=== PATIENT | male | born 1960 | race African-American/Black ===

== ENCOUNTER 2018-09-23 16:44 | Inpatient (IN) | payer MEDICAID ==
[~2018-09-23] VITALS: Ht 182.9 cm; Wt 67.6 kg
[~2018-09-23 16:44] MED LIST: ASPI-1159 PO; COR3 PO; FURO-151 PO; LOSA25TA12 PO; POTA-9 PO
[2018-09-23 17:41] LABS: BG BASE EXCESS -2.4 mmol/L (-2.0-2.0); BG BILEVEL POS AIRWAY PRESSURE 15/5; BG DEOXYHEMOGLOBIN 0.5 % (0.0-5.0); BG FRACTION INSPIRED OXYGEN 45; BG METHEMOGLOBIN 0.5 % (0.0-1.5); BG OXYGEN SATURATION 99.5 % (92.0-98.5); BG PCO2 28.4 mmHg (35.0-45.0); BG PH 7.465 (7.350-7.450); BG PO2 185.8 mmHg (75.0-100.0); BG SAMPLE SITE RIGHT RADIAL; BG TOTAL HEMOGLOBIN 14.6 g/dL (12.0-18.0); BG VENT MODE MASK - BIPAP; BG VENT RATE 20 set
[2018-09-23 17:54] LABS: BASOPHILS % 1.3 % (0.0-2.0); EOSINOPHILS % 0.3 % (0.0-5.0); HEMATOCRIT. 45.7 % (42.0-52.0); HEMOGLOBIN. 14.6 g/dL (14.0-18.0); LYMPHOCYTES % 19.1 % (20.0-50.0); MEAN CORPUSCULAR HEMOGLOBIN 24.1 pg (28.0-32.0); MEAN CORPUSCULAR VOLUME 75.5 fL (80.0-94.0); MEAN PLATELET VOLUME 8.2 fl (7.4-10.4); MONOCYTES % 11.7 % (2.0-8.0); NEUTROPHILS % 67.6 % (40.0-76.0); PLATELET 368 x1000/uL (130-400); RED BLOOD CELL COUNT 6.05 mill/uL (4.7-6.1); RED CELL DISTRIBUTION WIDTH 20.7 % (11.6-14.6)
[2018-09-23 18:02] LABS: CHLORIDE 99 mEq/L (98-107)
[2018-09-23 18:06] LABS: INR 1.5; PARTIAL THROMBOPLASTIN TIME 31.1 sec (23.4-31.0); PROTHROMBIN TIME 15.3 sec (9.1-11.1)
[2018-09-23 18:12] LABS: ETHANOL BLOOD < 10 mg/dL
[2018-09-23 20:18] LABS: *BARBITURATES SCREEN URINE NEGATIVE (NEGATIVE); *BENZODIAZEPINES SCREEN URINE NEGATIVE (NEGATIVE); *COCAINE SCREEN URINE NEGATIVE (NEGATIVE); METHADONE URINE SCREEN NEGATIVE (NEGATIVE)
[2018-09-23 20:19] LABS: *AMPHETAMINES SCREEN URINE PRESUMTIVE POSITIVE (NEGATIVE); CANNABINOID URINE SCREEN PRESUMTIVE POSITIVE (NEGATIVE); OPIATES URINE SCREEN NEGATIVE (NEGATIVE); PHENCYCLIDINE URINE SCREEN NEGATIVE (NEGATIVE)
[2018-09-23 21:29] VITALS: BP 95/75
[2018-09-23 21:31] VITALS: BP 95/75
[2018-09-23] MEDS ORDERED: MULT-1146 MT (21:41)
[2018-09-23] MEDS: FUROSEMIDE 40MG/4ML VIAL IVP SCH (22:00)
[2018-09-23] MEDS: IPRATROPIUM/ALBUTEROL 0.5-3(2.5)MG/3ML NEB HHN PRN (22:21)
[2018-09-24] VITALS: BP 103/70
[2018-09-24 04:00] VITALS: BP 112/76
[2018-09-24] MEDS: IPRATROPIUM/ALBUTEROL 0.5-3(2.5)MG/3ML NEB HHN PRN ×2 (04:20→07:30)
[2018-09-24 08:00] VITALS: BP 121/87
[2018-09-24] MEDS ORDERED: ASPIRIN 81MG TABLET PO SCH (09:00)
[2018-09-24] MEDS ORDERED: MEDICATION NOT ON FORMULARY EA (Multivitamin (Multi Vitamin Daily) 1 TAB) MT SCH (09:00)
[2018-09-24] MEDS ORDERED: MEDICATION NOT ON FORMULARY EA (Losartan Potassium 25 MG) PO SCH (09:00)
[2018-09-24] MEDS: POTASSIUM CHLORIDE 10MEQ TABLET SR PO SCH (09:50)
[2018-09-24] MEDS: LOSARTAN POTASSIUM 25 MG TABLET PO SCH (09:50)
[2018-09-24] MEDS: MULTIVITAMINS,THER W-MINERALS TABLET PO SCH (09:51)
[2018-09-24] MEDS: CARVEDILOL 3.125 MG TABLET PO SCH ×2 (09:51→20:21)
[2018-09-24] MEDS: SPIRONOLACTONE 25MG TABLET PO SCH (09:51)
[2018-09-24] MEDS: ENOXAPARIN 40MG/0.4ML SYR SUBCUT SCH (09:51)
[2018-09-24] MEDS: FUROSEMIDE 40MG/4ML VIAL IVP SCH (09:52)
[2018-09-24 12:00] VITALS: BP 109/80
[2018-09-24 16:00] VITALS: BP 116/80
[2018-09-24] MEDS: IPRATROPIUM/ALBUTEROL 0.5-3(2.5)MG/3ML NEB HHN SCH ×2 (16:21→20:12)
[2018-09-24] MEDS ORDERED: BENZONATATE 100MG CAPSULE PO PRN (16:45)
[2018-09-24] MEDS: FUROSEMIDE 100MG/10ML VIAL IVP SCH (19:14)
[2018-09-24 20:00] VITALS: BP 118/74
[2018-09-24] MEDS: GUAIFENESIN-DM 200MG-20MG/10ML UDC PO PRN ×2 (20:21→20:24)
[2018-09-25] VITALS: BP 115/79
[2018-09-25] MEDS: ZOLPIDEM TARTRATE 5MG TABLET PO PRN ×2 (00:02→22:43)
[2018-09-25] MEDS: IPRATROPIUM/ALBUTEROL 0.5-3(2.5)MG/3ML NEB HHN SCH ×6 (00:11→20:17)
[2018-09-25] MEDS: LORAZEPAM 0.5MG TABLET PO PRN (03:58)
[2018-09-25 04:00] VITALS: BP 119/96
[2018-09-25] MEDS: FUROSEMIDE 100MG/10ML VIAL IVP SCH ×2 (06:29→17:03)
[2018-09-25] MEDS: MULTIVITAMINS,THER W-MINERALS TABLET PO SCH (08:23)
[2018-09-25] MEDS: POTASSIUM CHLORIDE 10MEQ TABLET SR PO SCH (08:23)
[2018-09-25] MEDS: CARVEDILOL 3.125 MG TABLET PO SCH ×2 (08:23→20:23)
[2018-09-25] MEDS: SPIRONOLACTONE 25MG TABLET PO SCH (08:23)
[2018-09-25] MEDS: LOSARTAN POTASSIUM 25 MG TABLET PO SCH (08:23)
[2018-09-25] MEDS: ENOXAPARIN 40MG/0.4ML SYR SUBCUT SCH (08:24)
[2018-09-25 10:34] LABS: BASOPHILS % 1.3 % (0.0-2.0); EOSINOPHILS % 1.4 % (0.0-5.0); HEMATOCRIT. 50.9 % (42.0-52.0); LYMPHOCYTES % 18.6 % (20.0-50.0); MEAN CORPUSCULAR HEMOGLOBIN 23.8 pg (28.0-32.0); MEAN CORPUSCULAR VOLUME 75.9 fL (80.0-94.0); MEAN PLATELET VOLUME 9.1 fl (7.4-10.4); MONOCYTES % 11.8 % (2.0-8.0); NEUTROPHILS % 66.9 % (40.0-76.0); PLATELET 394 x1000/uL (130-400); RED CELL DISTRIBUTION WIDTH 21.5 % (11.6-14.6)
[2018-09-25 10:41] LABS: CHLORIDE 96 mEq/L (98-107)
[2018-09-25 11:09] LABS: TOTAL IRON BINDING CAPACITY 486 ug/dL (250-450)
[2018-09-25 12:17] LABS: HEPATITIS B SURFACE ANTIGEN NEGATIVE
[2018-09-25 12:46] LABS: HEPATITIS A AB IGM NEGATIVE (NEGATIVE)
[2018-09-25 20:00] VITALS: BP 120/85
[2018-09-25] MEDS: BUDESONIDE 0.5MG/2ML NEB HHN SCH (20:17)
[2018-09-26] VITALS: BP 109/77
[2018-09-26] MEDS: IPRATROPIUM/ALBUTEROL 0.5-3(2.5)MG/3ML NEB HHN SCH ×6 (00:09→21:15)
[2018-09-26 04:00] VITALS: BP 116/73
[2018-09-26] MEDS: FUROSEMIDE 100MG/10ML VIAL IVP SCH (06:32)
[2018-09-26] MEDS: BUDESONIDE 0.5MG/2ML NEB HHN SCH ×2 (09:15→21:15)
[2018-09-26] MEDS: MORPHINE SULFATE 4 MG/ML CPJ (NOT FOR IM USE) IV PRN ×2 (10:09→16:35)
[2018-09-26] MEDS: MULTIVITAMINS,THER W-MINERALS TABLET PO SCH (10:09)
[2018-09-26] MEDS: POTASSIUM CHLORIDE 10MEQ TABLET SR PO SCH (10:09)
[2018-09-26] MEDS: LORAZEPAM 0.5MG TABLET PO PRN (10:10)
[2018-09-26] MEDS: SPIRONOLACTONE 25MG TABLET PO SCH (10:11)
[2018-09-26] MEDS: LOSARTAN POTASSIUM 25 MG TABLET PO SCH (10:11)
[2018-09-26] MEDS: CARVEDILOL 3.125 MG TABLET PO SCH ×2 (10:12→20:55)
[2018-09-26] MEDS: ENOXAPARIN 40MG/0.4ML SYR SUBCUT SCH (10:18)
[2018-09-26 14:10] LABS: CHLORIDE 94 mEq/L (98-107)
[2018-09-26 14:11] LABS: BASOPHILS % 0.8 % (0.0-2.0); EOSINOPHILS % 0.1 % (0.0-5.0); HEMATOCRIT. 45.1 % (42.0-52.0); HEMOGLOBIN. 14.1 g/dL (14.0-18.0); LYMPHOCYTES % 17.6 % (20.0-50.0); MEAN CORPUSCULAR HEMOGLOBIN 23.5 pg (28.0-32.0); MEAN CORPUSCULAR VOLUME 75.4 fL (80.0-94.0); MEAN PLATELET VOLUME 8.5 fl (7.4-10.4); MONOCYTES % 13.8 % (2.0-8.0); NEUTROPHILS % 67.7 % (40.0-76.0); PLATELET 425 x1000/uL (130-400); RED BLOOD CELL COUNT 5.98 mill/uL (4.7-6.1); RED CELL DISTRIBUTION WIDTH 20.5 % (11.6-14.6)
[2018-09-26] MEDS ORDERED: METOLAZONE 2.5MG TABLET PO NR (14:45)
[2018-09-26 20:00] VITALS: BP 95/74
[2018-09-26] MEDS: THROAT LOZENGES-BENZOCAINE/MENTH/CETYLPYRD CL LOZENGES MM PRN (20:54)
[2018-09-26] MEDS: GUAIFENESIN-DM 200MG-20MG/10ML UDC PO PRN (20:54)
[2018-09-27] VITALS: BP 98/78
[2018-09-27] MEDS: ZOLPIDEM TARTRATE 5MG TABLET PO PRN (01:10)
[2018-09-27 04:00] VITALS: BP 97/65
[2018-09-27] MEDS: FUROSEMIDE 100MG/10ML VIAL IVP SCH ×2 (06:42→17:44)
[2018-09-27] MEDS: GUAIFENESIN-DM 200MG-20MG/10ML UDC PO PRN ×2 (06:42→20:37)
[2018-09-27 07:16] LABS: BASOPHILS % 0.8 % (0.0-2.0); EOSINOPHILS % 0.2 % (0.0-5.0); HEMATOCRIT. 46.6 % (42.0-52.0); HEMOGLOBIN. 14.6 g/dL (14.0-18.0); LYMPHOCYTES % 19.1 % (20.0-50.0); MEAN CORPUSCULAR HEMOGLOBIN 23.9 pg (28.0-32.0); MEAN CORPUSCULAR VOLUME 76.4 fL (80.0-94.0); MEAN PLATELET VOLUME 8.6 fl (7.4-10.4); MONOCYTES % 12.7 % (2.0-8.0); NEUTROPHILS % 67.2 % (40.0-76.0); PLATELET 358 x1000/uL (130-400); RED BLOOD CELL COUNT 6.09 mill/uL (4.7-6.1); RED CELL DISTRIBUTION WIDTH 21.1 % (11.6-14.6)
[2018-09-27 07:36] LABS: CHLORIDE 96 mEq/L (98-107)
[2018-09-27 08:00] VITALS: BP_SYST 111; BP_SYST 98; BP_DIAS 68; BP_DIAS 82
[2018-09-27] MEDS: IPRATROPIUM/ALBUTEROL 0.5-3(2.5)MG/3ML NEB HHN SCH ×4 (08:42→20:35)
[2018-09-27] MEDS: LOSARTAN POTASSIUM 25 MG TABLET PO SCH (09:23)
[2018-09-27] MEDS: SPIRONOLACTONE 25MG TABLET PO SCH (09:34)
[2018-09-27] MEDS: CARVEDILOL 3.125 MG TABLET PO SCH ×2 (09:35→20:37)
[2018-09-27] MEDS: MULTIVITAMINS,THER W-MINERALS TABLET PO SCH (09:35)
[2018-09-27 12:00] VITALS: BP 106/79
[2018-09-27] MEDS ORDERED: SODIUM POLYSTYRENE SULFONATE 15 G/60 ML BOT PO NR (12:30)
[2018-09-27] MEDS: FERROUS SULFATE 325MG TABLET PO SCH ×2 (13:54→17:44)
[2018-09-27 14:00] VITALS: BP_SYST 106; BP_SYST 110; BP_SYST 99; BP_DIAS 62; BP_DIAS 76; BP_DIAS 79
[2018-09-27 16:00] VITALS: BP 109/80
[2018-09-27 16:10] LABS: INR 1.4; PROTHROMBIN TIME 14.1 sec (9.1-11.1)
[2018-09-27] MEDS: BUDESONIDE 0.5MG/2ML NEB HHN SCH (20:35)
[2018-09-27] MEDS: THROAT LOZENGES-BENZOCAINE/MENTH/CETYLPYRD CL LOZENGES MM PRN (20:38)
[2018-09-28] VITALS (7 sets, daily range): BP systolic 92–114; BP diastolic 65–78
[2018-09-28] MEDS: IPRATROPIUM/ALBUTEROL 0.5-3(2.5)MG/3ML NEB HHN SCH ×6 (00:47→19:49)
[2018-09-28] MEDS: FUROSEMIDE 100MG/10ML VIAL IVP SCH ×2 (06:50→18:09)
[2018-09-28 07:45] LABS: EOSINOPHILS % 0.6 % (0.0-5.0); HEMATOCRIT. 45.3 % (42.0-52.0); HEMOGLOBIN. 14.4 g/dL (14.0-18.0); LYMPHOCYTES % 14.9 % (20.0-50.0); MEAN CORPUSCULAR HEMOGLOBIN 23.9 pg (28.0-32.0); MEAN CORPUSCULAR VOLUME 75.2 fL (80.0-94.0); MEAN PLATELET VOLUME 8.4 fl (7.4-10.4); NEUTROPHILS % 71.5 % (40.0-76.0); PLATELET 467 x1000/uL (130-400); RED BLOOD CELL COUNT 6.02 mill/uL (4.7-6.1); RED CELL DISTRIBUTION WIDTH 21.1 % (11.6-14.6)
[2018-09-28] MEDS: MULTIVITAMINS,THER W-MINERALS TABLET PO SCH (08:40)
[2018-09-28] MEDS: CARVEDILOL 3.125 MG TABLET PO SCH ×2 (08:40→21:03)
[2018-09-28] MEDS: FERROUS SULFATE 325MG TABLET PO SCH ×3 (08:40→18:07)
[2018-09-28] MEDS: SPIRONOLACTONE 25MG TABLET PO SCH (08:40)
[2018-09-28] MEDS: BUDESONIDE 0.5MG/2ML NEB HHN SCH ×2 (08:51→19:49)
[2018-09-28 09:25] LABS: CHLORIDE 92 mEq/L (98-107)
[2018-09-28] MEDS ORDERED: SODIUM BICARBONATE 4% (2.4MEQ) 5ML VIAL IV ONE (09:51)
[2018-09-29] VITALS: BP 108/68
[2018-09-29] MEDS: IPRATROPIUM/ALBUTEROL 0.5-3(2.5)MG/3ML NEB HHN SCH ×6 (00:03→20:00)
[2018-09-29] MEDS: ZOLPIDEM TARTRATE 5MG TABLET PO PRN (00:30)
[2018-09-29 04:00] VITALS: BP 112/72
[2018-09-29] MEDS: FUROSEMIDE 100MG/10ML VIAL IVP SCH ×2 (07:15→17:27)
[2018-09-29 08:00] VITALS: BP 114/75
[2018-09-29 08:06] LABS: INR 1.3; PARTIAL THROMBOPLASTIN TIME 31.7 sec (23.4-31.0); PROTHROMBIN TIME 13.5 sec (9.1-11.1)
[2018-09-29 08:18] LABS: BASOPHILS % 0.8 % (0.0-2.0); EOSINOPHILS % 0.7 % (0.0-5.0); HEMATOCRIT. 43.2 % (42.0-52.0); HEMOGLOBIN. 13.9 g/dL (14.0-18.0); LYMPHOCYTES % 18.3 % (20.0-50.0); MEAN CORPUSCULAR HEMOGLOBIN 24.4 pg (28.0-32.0); MEAN CORPUSCULAR VOLUME 75.7 fL (80.0-94.0); MEAN PLATELET VOLUME 8.3 fl (7.4-10.4); MONOCYTES % 13.7 % (2.0-8.0); NEUTROPHILS % 66.5 % (40.0-76.0); PLATELET 500 x1000/uL (130-400); RED BLOOD CELL COUNT 5.71 mill/uL (4.7-6.1)
[2018-09-29 08:34] LABS: CHLORIDE 90 mEq/L (98-107)
[2018-09-29] MEDS: CARVEDILOL 3.125 MG TABLET PO SCH (09:08)
[2018-09-29] MEDS: FERROUS SULFATE 325MG TABLET PO SCH ×3 (09:08→17:26)
[2018-09-29] MEDS: MULTIVITAMINS,THER W-MINERALS TABLET PO SCH (09:08)
[2018-09-29] MEDS: SPIRONOLACTONE 25MG TABLET PO SCH (09:08)
[2018-09-29 16:00] VITALS: BP 107/75
[2018-09-29 20:00] VITALS: BP 98/74
[2018-09-29] MEDS: CARVEDILOL 6.25 MG TABLET PO SCH (21:00)
[2018-09-30] VITALS (13 sets, daily range): BP systolic 83–148; BP diastolic 53–104
[2018-09-30] MEDS: IPRATROPIUM/ALBUTEROL 0.5-3(2.5)MG/3ML NEB HHN SCH ×5 (04:30→20:30)
[2018-09-30] MEDS: FERROUS SULFATE 325MG TABLET PO SCH ×3 (08:10→19:53)
[2018-09-30] MEDS: MULTIVITAMINS,THER W-MINERALS TABLET PO SCH (09:00)
[2018-09-30] MEDS: CARVEDILOL 6.25 MG TABLET PO SCH ×2 (09:00→21:25)
[2018-09-30] MEDS: SPIRONOLACTONE 25MG TABLET PO SCH (09:00)
[2018-09-30 09:44] LABS: HEMATOCRIT. 42.8 % (42.0-52.0); HEMOGLOBIN. 13.6 g/dL (14.0-18.0); MEAN CORPUSCULAR VOLUME 75.5 fL (80.0-94.0); MEAN PLATELET VOLUME 8.4 fl (7.4-10.4); PLATELET 466 x1000/uL (130-400); RED BLOOD CELL COUNT 5.67 mill/uL (4.7-6.1); RED CELL DISTRIBUTION WIDTH 21.1 % (11.6-14.6)
[2018-09-30 11:20] LABS: PLATELET ESTIMATE SLIGHTLY INCREASED
[2018-09-30] MEDS: FUROSEMIDE 100MG/10ML VIAL IVP SCH ×2 (11:37→19:53)
[2018-09-30] MEDS ORDERED: LIDOCAINE HCL 1% 20ML VIAL (Pyxis) INJ ONE (11:54)
[2018-09-30] MEDS ORDERED: SODIUM BICARBONATE 4% (2.4MEQ) 5ML VIAL IV ONE (11:54)
[2018-09-30] MEDS ORDERED: LIDOCAINE HCL/EPINEPHRINE 1%-EPI 1:100,000 20 ML VIAL ONE (11:54)
[2018-09-30] MEDS ORDERED: FENTANYL CITRATE/PF 50MCG/ML 2ML VIAL ONE (11:56)
[2018-09-30 12:21] LABS: CHLORIDE 93 mEq/L (98-107)
[2018-09-30] MEDS ORDERED: MIDAZOLAM HCL 2 MG/2 ML VIAL ONE (12:27)
[2018-09-30] MEDS ORDERED: MIDAZOLAM HCL 5 MG/5 ML VIAL IV ONE (12:30)
[2018-09-30] MEDS ORDERED: ACETAMINOPHEN 325MG TABLET PO PRN (16:15)
[2018-09-30] MEDS ORDERED: HYDROCODONE/ACETAMINOPHEN 5/325MG TABLET PO PRN (16:15)
[2018-09-30] MEDS: DOCUSATE SODIUM 250MG CAPSULE PO SCH (19:53)
[2018-09-30 21:11] LABS: HEMATOCRIT 45.8 % (42.0-52.0); HEMOGLOBIN 14.5 g/dL (14.0-18.0)
[2018-09-30] MEDS: DILTIAZEM HCL 60MG TABLET PO SCH (22:35)
[2018-10-01] VITALS: BP_SYST 102; BP_SYST 91; BP_SYST 96; BP_DIAS 41; BP_DIAS 68; BP_DIAS 71
[2018-10-01] MEDS: IPRATROPIUM/ALBUTEROL 0.5-3(2.5)MG/3ML NEB HHN SCH ×6 (03:49→20:42)
[2018-10-01 04:00] VITALS: BP 95/62
[2018-10-01] MEDS: DILTIAZEM HCL 60MG TABLET PO SCH (06:00)
[2018-10-01] MEDS: FUROSEMIDE 100MG/10ML VIAL IVP SCH (06:36)
[2018-10-01 07:24] LABS: BASOPHILS % 0.9 % (0.0-2.0); EOSINOPHILS % 0.8 % (0.0-5.0); HEMATOCRIT. 44.5 % (42.0-52.0); LYMPHOCYTES % 16.5 % (20.0-50.0); MEAN CORPUSCULAR HEMOGLOBIN 23.9 pg (28.0-32.0); MEAN CORPUSCULAR VOLUME 76.2 fL (80.0-94.0); MEAN PLATELET VOLUME 7.8 fl (7.4-10.4); MONOCYTES % 12.9 % (2.0-8.0); NEUTROPHILS % 68.9 % (40.0-76.0); PLATELET 491 x1000/uL (130-400); RED BLOOD CELL COUNT 5.85 mill/uL (4.7-6.1); RED CELL DISTRIBUTION WIDTH 21.6 % (11.6-14.6)
[2018-10-01 07:33] LABS: CHLORIDE 92 mEq/L (98-107)
[2018-10-01 08:00] VITALS: BP_SYST 100; BP_SYST 103; BP_SYST 105; BP_DIAS 71; BP_DIAS 73; BP_DIAS 84
[2018-10-01] MEDS: SPIRONOLACTONE 25MG TABLET PO SCH (09:00)
[2018-10-01] MEDS: CARVEDILOL 6.25 MG TABLET PO SCH (09:00)
[2018-10-01] MEDS: FERROUS SULFATE 325MG TABLET PO SCH ×3 (10:34→18:26)
[2018-10-01] MEDS: DOCUSATE SODIUM 250MG CAPSULE PO SCH (10:34)
[2018-10-01] MEDS: MULTIVITAMINS,THER W-MINERALS TABLET PO SCH (10:34)
[2018-10-01 12:00] VITALS: BP 102/66
[2018-10-01] MEDS: DILTIAZEM HCL 30MG TABLET PO SCH ×2 (14:00→22:32)
[2018-10-01 16:00] VITALS: BP 91/65
[2018-10-01 20:00] VITALS: BP 107/73
[2018-10-01] MEDS: CARVEDILOL 3.125 MG TABLET PO SCH (20:42)
[2018-10-02] VITALS: BP 115/74
[2018-10-02] MEDS: IPRATROPIUM/ALBUTEROL 0.5-3(2.5)MG/3ML NEB HHN SCH ×6 (00:31→21:18)
[2018-10-02 04:00] VITALS: BP 100/73
[2018-10-02] MEDS: DILTIAZEM HCL 30MG TABLET PO SCH ×3 (06:00→21:45)
[2018-10-02 07:38] LABS: BASOPHILS % 0.9 % (0.0-2.0); EOSINOPHILS % 1.4 % (0.0-5.0); HEMATOCRIT. 42.2 % (42.0-52.0); HEMOGLOBIN. 13.6 g/dL (14.0-18.0); LYMPHOCYTES % 16.8 % (20.0-50.0); MEAN CORPUSCULAR HEMOGLOBIN 24.4 pg (28.0-32.0); MEAN CORPUSCULAR VOLUME 76.1 fL (80.0-94.0); MEAN PLATELET VOLUME 7.8 fl (7.4-10.4); MONOCYTES % 11.3 % (2.0-8.0); NEUTROPHILS % 69.6 % (40.0-76.0); PLATELET 486 x1000/uL (130-400); RED BLOOD CELL COUNT 5.55 mill/uL (4.7-6.1); RED CELL DISTRIBUTION WIDTH 21.5 % (11.6-14.6)
[2018-10-02 07:46] LABS: CHLORIDE 90 mEq/L (98-107)
[2018-10-02 08:00] VITALS: BP 116/57
[2018-10-02] MEDS: FERROUS SULFATE 325MG TABLET PO SCH ×3 (09:13→17:41)
[2018-10-02] MEDS: DOCUSATE SODIUM 250MG CAPSULE PO SCH (09:13)
[2018-10-02] MEDS: MULTIVITAMINS,THER W-MINERALS TABLET PO SCH (09:13)
[2018-10-02] MEDS: CARVEDILOL 3.125 MG TABLET PO SCH ×2 (09:18→20:49)
[2018-10-02 12:00] VITALS: BP 90/67
[2018-10-02] MEDS: ENOXAPARIN 80MG/0.8ML SYR SUBCUT SCH ×2 (13:57→20:51)
[2018-10-02 16:00] VITALS: BP 112/88
[2018-10-02 20:00] VITALS: BP 102/82
[2018-10-02] MEDS ORDERED: MAGNESIUM/ALUMINUM HYDROXIDE/SIMETHICONE 30ML UDC PO PRN (20:15)
[2018-10-02] MEDS: OMEPRAZOLE 20MG CAPSULE EXTENDED RELEASE PO SCH (20:51)
[2018-10-03] VITALS: BP 105/79
[2018-10-03] MEDS: IPRATROPIUM/ALBUTEROL 0.5-3(2.5)MG/3ML NEB HHN SCH ×6 (01:18→20:08)
[2018-10-03 04:30] VITALS: BP_SYST 107; BP_SYST 110; BP_SYST 116; BP_DIAS 79; BP_DIAS 83; BP_DIAS 88
[2018-10-03] MEDS: DILTIAZEM HCL 30MG TABLET PO SCH ×3 (05:21→21:49)
[2018-10-03 07:25] LABS: BASOPHILS % 1.3 % (0.0-2.0); EOSINOPHILS % 0.4 % (0.0-5.0); HEMATOCRIT. 42.8 % (42.0-52.0); HEMOGLOBIN. 13.7 g/dL (14.0-18.0); LYMPHOCYTES % 17.9 % (20.0-50.0); MEAN CORPUSCULAR HEMOGLOBIN 24.2 pg (28.0-32.0); MEAN CORPUSCULAR VOLUME 75.7 fL (80.0-94.0); MEAN PLATELET VOLUME 7.7 fl (7.4-10.4); MONOCYTES % 13.1 % (2.0-8.0); NEUTROPHILS % 67.3 % (40.0-76.0); PLATELET 485 x1000/uL (130-400); RED BLOOD CELL COUNT 5.66 mill/uL (4.7-6.1)
[2018-10-03 08:00] VITALS: BP 105/73
[2018-10-03 08:43] LABS: CHLORIDE 93 mEq/L (98-107)
[2018-10-03] MEDS: CARVEDILOL 3.125 MG TABLET PO SCH (09:02)
[2018-10-03] MEDS: ENOXAPARIN 80MG/0.8ML SYR SUBCUT SCH ×2 (09:02→21:50)
[2018-10-03] MEDS: DOCUSATE SODIUM 250MG CAPSULE PO SCH (09:03)
[2018-10-03] MEDS: MULTIVITAMINS,THER W-MINERALS TABLET PO SCH (09:03)
[2018-10-03] MEDS: OMEPRAZOLE 20MG CAPSULE EXTENDED RELEASE PO SCH (09:03)
[2018-10-03] MEDS: FERROUS SULFATE 325MG TABLET PO SCH ×3 (09:04→18:46)
[2018-10-03 12:00] VITALS: BP_SYST 104; BP_SYST 110; BP_SYST 92; BP_DIAS 63; BP_DIAS 77; BP_DIAS 85
[2018-10-03] MEDS ORDERED: METOLAZONE 2.5MG TABLET PO NR (13:30)
[2018-10-03 16:00] VITALS: BP 116/85
[2018-10-03 20:00] VITALS: BP_SYST 102; BP_SYST 106; BP_SYST 110; BP_DIAS 72; BP_DIAS 76; BP_DIAS 80
[2018-10-03] MEDS: CARVEDILOL 6.25 MG TABLET PO SCH (21:50)
[2018-10-04] VITALS: BP 96/69
[2018-10-04] MEDS: IPRATROPIUM/ALBUTEROL 0.5-3(2.5)MG/3ML NEB HHN SCH ×7 (00:34→20:25)
[2018-10-04] MEDS: DILTIAZEM HCL 30MG TABLET PO SCH ×3 (04:49→21:49)
[2018-10-04 07:53] LABS: BASOPHILS % 0.8 % (0.0-2.0); EOSINOPHILS % 0.1 % (0.0-5.0); HEMATOCRIT. 43.7 % (42.0-52.0); HEMOGLOBIN. 13.8 g/dL (14.0-18.0); LYMPHOCYTES % 17.1 % (20.0-50.0); MEAN CORPUSCULAR HEMOGLOBIN 24.2 pg (28.0-32.0); MEAN CORPUSCULAR VOLUME 76.4 fL (80.0-94.0); MEAN PLATELET VOLUME 8.1 fl (7.4-10.4); MONOCYTES % 12.3 % (2.0-8.0); NEUTROPHILS % 69.7 % (40.0-76.0); PLATELET 471 x1000/uL (130-400); RED BLOOD CELL COUNT 5.72 mill/uL (4.7-6.1); RED CELL DISTRIBUTION WIDTH 22.2 % (11.6-14.6)
[2018-10-04 08:00] VITALS: BP 102/75
[2018-10-04 08:02] LABS: CHLORIDE 91 mEq/L (98-107)
[2018-10-04] MEDS: MULTIVITAMINS,THER W-MINERALS TABLET PO SCH (09:11)
[2018-10-04] MEDS: OMEPRAZOLE 20MG CAPSULE EXTENDED RELEASE PO SCH (09:11)
[2018-10-04] MEDS: CARVEDILOL 6.25 MG TABLET PO SCH ×2 (09:12→21:00)
[2018-10-04] MEDS: DOCUSATE SODIUM 250MG CAPSULE PO SCH (09:12)
[2018-10-04] MEDS: FUROSEMIDE 100MG/10ML VIAL IVP SCH (09:12)
[2018-10-04] MEDS: FERROUS SULFATE 325MG TABLET PO SCH ×3 (09:12→17:22)
[2018-10-04] MEDS: ENOXAPARIN 80MG/0.8ML SYR SUBCUT SCH ×2 (09:12→21:51)
[2018-10-04 12:00] VITALS: BP 114/78
[2018-10-04] MEDS: ALPRAZOLAM 0.5 MG TABLET PO PRN (15:20)
[2018-10-04 15:26] VITALS: BP_SYST 101; BP_SYST 114; BP_SYST 120; BP_DIAS 64; BP_DIAS 67; BP_DIAS 91
[2018-10-04 16:00] VITALS: BP 120/91
[2018-10-04 20:00] VITALS: BP 102/74
[2018-10-05] VITALS (7 sets, daily range): BP systolic 88–117; BP diastolic 65–95
[2018-10-05] MEDS: IPRATROPIUM/ALBUTEROL 0.5-3(2.5)MG/3ML NEB HHN SCH ×6 (00:53→20:14)
[2018-10-05] MEDS: ALPRAZOLAM 0.5 MG TABLET PO PRN ×2 (04:16→12:34)
[2018-10-05] MEDS: OMEPRAZOLE 20MG CAPSULE EXTENDED RELEASE PO SCH ×2 (07:12→09:54)
[2018-10-05] MEDS: DILTIAZEM HCL 30MG TABLET PO SCH ×3 (07:13→22:00)
[2018-10-05] MEDS: DOCUSATE SODIUM 250MG CAPSULE PO SCH ×2 (09:49→09:54)
[2018-10-05] MEDS: FERROUS SULFATE 325MG TABLET PO SCH (09:50)
[2018-10-05] MEDS: FUROSEMIDE 100MG/10ML VIAL IVP SCH ×2 (09:53→17:25)
[2018-10-05] MEDS: ENOXAPARIN 80MG/0.8ML SYR SUBCUT SCH ×2 (09:53→21:32)
[2018-10-05] MEDS: CARVEDILOL 6.25 MG TABLET PO SCH ×2 (09:54→21:31)
[2018-10-05] MEDS: MULTIVITAMINS,THER W-MINERALS TABLET PO SCH (09:54)
[2018-10-06] VITALS: BP 100/71
[2018-10-06] MEDS: IPRATROPIUM/ALBUTEROL 0.5-3(2.5)MG/3ML NEB HHN SCH ×5 (00:06→15:52)
[2018-10-06 04:00] VITALS: BP 99/73
[2018-10-06] MEDS: DILTIAZEM HCL 30MG TABLET PO SCH ×2 (06:00→14:00)
[2018-10-06 07:09] LABS: BASOPHILS % 1.9 % (0.0-2.0); EOSINOPHILS % 1.3 % (0.0-5.0); HEMATOCRIT. 43.8 % (42.0-52.0); LYMPHOCYTES % 21.5 % (20.0-50.0); MEAN CORPUSCULAR HEMOGLOBIN 24.6 pg (28.0-32.0); MEAN CORPUSCULAR VOLUME 77.1 fL (80.0-94.0); MEAN PLATELET VOLUME 7.9 fl (7.4-10.4); MONOCYTES % 14.6 % (2.0-8.0); NEUTROPHILS % 60.7 % (40.0-76.0); PLATELET 450 x1000/uL (130-400); RED BLOOD CELL COUNT 5.68 mill/uL (4.7-6.1); RED CELL DISTRIBUTION WIDTH 22.2 % (11.6-14.6)
[2018-10-06 08:00] VITALS: BP 115/79
[2018-10-06 08:10] LABS: CHLORIDE 87 mEq/L (98-107)
[2018-10-06] MEDS: ENOXAPARIN 80MG/0.8ML SYR SUBCUT SCH (08:28)
[2018-10-06] MEDS: FUROSEMIDE 100MG/10ML VIAL IVP SCH (08:28)
[2018-10-06] MEDS: CARVEDILOL 6.25 MG TABLET PO SCH (08:28)
[2018-10-06] MEDS: MULTIVITAMINS,THER W-MINERALS TABLET PO SCH (08:28)
[2018-10-06] MEDS: FERROUS SULFATE 325MG TABLET PO SCH ×2 (08:28→14:58)
[2018-10-06 12:00] VITALS: BP 101/67
[2018-10-06 16:00] VITALS: BP 114/64
[2018-10-07] MEDS ORDERED: FAMOTIDINE 20MG TABLET PO SCH (09:00)
== END 2018-10-06 17:26 | disposition home or self-care (01) | DRG 812 ==
LOC: ER 16:44 → EDBEDREQ 16:55 → 7WST 18:30 → EDBEDREQTM 18:32 → EDBEDREQ 18:32 → CANRESERV 19:50 → ENRESERV 19:50
PROVIDERS: ADMIT Internal Medicine; ATTEND Internal Medicine
PROC: 5A09357 Assistance with Respiratory Ventilation, Less than 24 Consecutive Hours, Continuous Positive Airway Pressure (ICD-10-PCS; 2018-09-23)
PROC: 0W9930Z Drainage of Right Pleural Cavity with Drainage Device, Percutaneous Approach (ICD-10-PCS; principal; 2018-09-28)
PROC: 0FB23ZX Excision of Left Lobe Liver, Percutaneous Approach, Diagnostic (ICD-10-PCS; 2018-09-30)
DX: T43.621A Poisoning by amphetamines, accidental (unintentional), initial encounter (principal); J96.01 Acute respiratory failure with hypoxia; I47.2 Ventricular tachycardia; E87.3 Alkalosis; J84.9 Interstitial pulmonary disease, unspecified; E44.0 Moderate protein-calorie malnutrition; I50.43 Acute on chronic combined systolic (congestive) and diastolic (congestive) heart failure; T40.5X1A Poisoning by cocaine, accidental (unintentional), initial encounter; Y92.89 Other specified places as the place of occurrence of the external cause; D68.9 Coagulation defect, unspecified; E87.5 Hyperkalemia; J68.0 Bronchitis and pneumonitis due to chemicals, gases, fumes and vapors; D64.9 Anemia, unspecified; F12.90 Cannabis use, unspecified, uncomplicated; F14.90 Cocaine use, unspecified, uncomplicated; I42.0 Dilated cardiomyopathy; F15.10 Other stimulant abuse, uncomplicated; F10.10 Alcohol abuse, uncomplicated; F17.210 Nicotine dependence, cigarettes, uncomplicated; J90 Pleural effusion, not elsewhere classified; I45.81 Long QT syndrome; K70.30 Alcoholic cirrhosis of liver without ascites; F41.9 Anxiety disorder, unspecified; J44.1 Chronic obstructive pulmonary disease with (acute) exacerbation; I11.0 Hypertensive heart disease with heart failure; G47.00 Insomnia, unspecified; K83.1 Obstruction of bile duct; N13.8 Other obstructive and reflux uropathy; N40.1 Benign prostatic hyperplasia with lower urinary tract symptoms; R56.9 Unspecified convulsions; Z91.19 Patient's noncompliance with other medical treatment and regimen; Z79.899 Other long term (current) drug therapy; Z79.82 Long term (current) use of aspirin; Z68.20 Body mass index [BMI] 20.0-20.9, adult; Z71.6 Tobacco abuse counseling; I69.328 Other speech and language deficits following cerebral infarction
CPT/HCPCS: 32555; 36415; 36600; 71045; 76700; 77012; 80048; 80076; 80305; 82040; 82105; 82248; 82375; 82728; 82805; 83540; 83550; 83615; 83735; 83880; 84132; 84439; 84443; 84484; 85014; 85018; 86705; 86709; 86803; 87340; 88108; 88307; 88312; 93005; 93306; 93970; 94640; 94660; 97110; 97116; 97162; 97166; 97530; 97535; 99291; G0482; J1650; J1940; J2250; J2270; J3010; J3490; J7620; J7626

== ENCOUNTER 2018-10-17 15:05 | Emergency (ER) | payer MEDICAID ==
[~2018-10-17] VITALS: Ht 182.9 cm; Wt 72.0 kg
[~2018-10-17 15:05] MED LIST changes: -COR3 PO; -FURO-151 PO; -LOSA25TA12 PO; +MULT-1146 MT; -POTA-9 PO
[2018-10-17 15:15] VITALS: BP 93/66
[2018-10-17] MEDS ORDERED: potassium (15:15)
== END 2018-10-17 16:09 | disposition left against medical advice (07) ==
LOC: ER 15:56
DX: Z53.21 Procedure and treatment not carried out due to patient leaving prior to being seen by health care provider (principal)

== ENCOUNTER 2018-11-21 18:43 | Inpatient (IN) | payer MEDICAID ==
[~2018-11-21] VITALS: Ht 182.9 cm; Wt 88.9 kg
[~2018-11-21 18:43] MED LIST changes: +potassium
[2018-11-21] MEDS ORDERED: NITROGLYCERIN OINT 1GM/INCH UDPKT TD ONE (19:30)
[2018-11-21] MEDS ORDERED: IPRATROPIUM BROMIDE (0.02%) 0.5MG/2.5ML NEB HHN STA (19:34)
[2018-11-21] MEDS ORDERED: MAGNESIUM 2 G PREMIX 50 ML IV STA (19:34)
[2018-11-21] MEDS ORDERED: ALBUTEROL (0.083%) 2.5MG/3ML NEB HHN STA (19:34)
[2018-11-21] MEDS ORDERED: METHYLPREDNISOLONE SOD SUCC 125 MG/2 ML VIAL IV STA (19:34)
[2018-11-21 20:12] LABS: BASOPHILS % 2.2 % (0.0-2.0); EOSINOPHILS % 0.8 % (0.0-5.0); HEMATOCRIT. 47.5 % (42.0-52.0); HEMOGLOBIN. 14.7 g/dL (14.0-18.0); LYMPHOCYTES % 24.3 % (20.0-50.0); MEAN CORPUSCULAR HEMOGLOBIN 23.7 pg (28.0-32.0); MEAN CORPUSCULAR VOLUME 76.5 fL (80.0-94.0); MEAN PLATELET VOLUME 7.8 fl (7.4-10.4); MONOCYTES % 14.9 % (2.0-8.0); NEUTROPHILS % 57.8 % (40.0-76.0); PLATELET 387 x1000/uL (130-400); RED BLOOD CELL COUNT 6.21 mill/uL (4.7-6.1); RED CELL DISTRIBUTION WIDTH 21.3 % (11.6-14.6)
[2018-11-21] MEDS ORDERED: FUROSEMIDE 40MG/4ML VIAL IVP ONE (20:15)
[2018-11-21 20:17] LABS: CHLORIDE 105 mEq/L (98-107)
[2018-11-21 20:19] LABS: INR 1.9; PROTHROMBIN TIME 19.1 sec (9.1-11.1)
[2018-11-21 20:21] LABS: ETHANOL BLOOD < 10 mg/dL
[2018-11-21 21:33] LABS: BG BASE EXCESS -4.9 mmol/L (-2.0-2.0); BG BILEVEL POS AIRWAY PRESSURE 15/5; BG DEOXYHEMOGLOBIN 0.3 % (0.0-5.0); BG FRACTION INSPIRED OXYGEN 100; BG HCO3 ACT 18.9 mmol/L (22.0-26.0); BG METHEMOGLOBIN 0.5 % (0.0-1.5); BG OXYGEN SATURATION 99.7 % (92.0-98.5); BG OXYHEMOGLOBIN 97.2 % (94.0-97.0); BG PCO2 32.2 mmHg (35.0-45.0); BG PH 7.386 (7.350-7.450); BG PO2 198.1 mmHg (75.0-100.0); BG SAMPLE SITE RIGHT BRACHIAL; BG TOTAL HEMOGLOBIN 15.7 g/dL (12.0-18.0); BG VENT MODE MASK - BIPAP; BG VENT RATE 14 set
[2018-11-21 21:47] LABS: *AMPHETAMINES SCREEN URINE PRESUMTIVE POSITIVE (NEGATIVE); *BARBITURATES SCREEN URINE NEGATIVE (NEGATIVE); *BENZODIAZEPINES SCREEN URINE PRESUMTIVE POSITIVE (NEGATIVE); *COCAINE SCREEN URINE NEGATIVE (NEGATIVE); METHADONE URINE SCREEN NEGATIVE (NEGATIVE); OPIATES URINE SCREEN NEGATIVE (NEGATIVE)
[2018-11-21 21:48] LABS: PHENCYCLIDINE URINE SCREEN NEGATIVE (NEGATIVE)
[2018-11-21 22:29] LABS: CANNABINOID URINE SCREEN NEGATIVE (NEGATIVE)
[2018-11-21 23:30] VITALS: BP 113/53
[2018-11-22] VITALS (17 sets, daily range): BP systolic 107–142; BP diastolic 53–84
[2018-11-22] MEDS ORDERED: CLONIDINE 0.1MG TABLET PO PRN (00:15)
[2018-11-22] MEDS: IPRATROPIUM/ALBUTEROL 0.5-3(2.5)MG/3ML NEB HHN SCH ×5 (04:26→19:59)
[2018-11-22] MEDS: METHYLPREDNISOLONE SOD SUCC 40 MG/ML VIAL IV SCH ×2 (05:32→13:06)
[2018-11-22 05:55] LABS: BASOPHILS % 0.2 % (0.0-2.0); HEMATOCRIT. 46.3 % (42.0-52.0); HEMOGLOBIN. 14.7 g/dL (14.0-18.0); LYMPHOCYTES % 9.4 % (20.0-50.0); MEAN CORPUSCULAR HEMOGLOBIN 24.4 pg (28.0-32.0); MEAN CORPUSCULAR VOLUME 76.6 fL (80.0-94.0); MEAN PLATELET VOLUME 7.9 fl (7.4-10.4); MONOCYTES % 3.9 % (2.0-8.0); NEUTROPHILS % 86.5 % (40.0-76.0); PLATELET 337 x1000/uL (130-400); RED BLOOD CELL COUNT 6.05 mill/uL (4.7-6.1); RED CELL DISTRIBUTION WIDTH 21.1 % (11.6-14.6)
[2018-11-22 05:57] LABS: CHLORIDE 102 mEq/L (98-107)
[2018-11-22 06:08] LABS: CREATINE KINASE 62 IU/L (39-308)
[2018-11-22 06:13] LABS: CREATINE KINASE MB FRACTION 2.3 ng/mL (0.5-3.6)
[2018-11-22] MEDS: ENOXAPARIN 40MG/0.4ML SYR SUBCUT SCH (08:56)
[2018-11-22] MEDS ORDERED: FUROSEMIDE 40MG/4ML VIAL IVP SCH (09:00)
[2018-11-22] MEDS: LOSARTAN POTASSIUM 25 MG TABLET PO SCH (14:15)
[2018-11-22] MEDS: AMLODIPINE 2.5MG TABLET PO SCH (14:56)
[2018-11-22 15:46] LABS: CREATINE KINASE MB FRACTION 1.8 ng/mL (0.5-3.6)
[2018-11-22] MEDS: FUROSEMIDE 40MG/4ML VIAL IVP SCH (16:59)
[2018-11-23] VITALS (8 sets, daily range): BP systolic 108–147; BP diastolic 66–90
[2018-11-23] MEDS: AMLODIPINE 2.5MG TABLET PO SCH ×3 (00:03→22:33)
[2018-11-23] MEDS: IPRATROPIUM/ALBUTEROL 0.5-3(2.5)MG/3ML NEB HHN SCH ×6 (00:52→20:49)
[2018-11-23 06:28] LABS: HEMATOCRIT. 41.6 % (42.0-52.0); HEMOGLOBIN. 13.1 g/dL (14.0-18.0); MEAN CORPUSCULAR HEMOGLOBIN 23.9 pg (28.0-32.0); MEAN PLATELET VOLUME 7.9 fl (7.4-10.4); PLATELET 332 x1000/uL (130-400); RED BLOOD CELL COUNT 5.47 mill/uL (4.7-6.1); RED CELL DISTRIBUTION WIDTH 21.2 % (11.6-14.6)
[2018-11-23 06:43] LABS: CHLORIDE 103 mEq/L (98-107)
[2018-11-23 06:51] LABS: HDL CHOLESTEROL 23 mg/dL (40-59)
[2018-11-23 06:53] LABS: LDL CHOLESTEROL 68 mg/dL (5-100)
[2018-11-23] MEDS: LOSARTAN POTASSIUM 25 MG TABLET PO SCH (08:21)
[2018-11-23] MEDS: PREDNISONE 20MG TABLET PO SCH (08:27)
[2018-11-23] MEDS: FUROSEMIDE 40MG/4ML VIAL IVP SCH ×2 (08:27→17:15)
[2018-11-23] MEDS: ENOXAPARIN 40MG/0.4ML SYR SUBCUT SCH (08:28)
[2018-11-23 09:57] LABS: BG BASE EXCESS 1.4 mmol/L (-2.0-2.0); BG CARBOXYHEMOGLOBIN 1.9 % (0.5-1.5); BG DEOXYHEMOGLOBIN 8.8 % (0.0-5.0); BG FRACTION INSPIRED OXYGEN 21; BG HCO3 ACT 25.2 mmol/L (22.0-26.0); BG METHEMOGLOBIN 0.5 % (0.0-1.5); BG OXYHEMOGLOBIN 88.8 % (94.0-97.0); BG PCO2 37.2 mmHg (35.0-45.0); BG PH 7.448 (7.350-7.450); BG PO2 61.7 mmHg (75.0-100.0); BG SAMPLE SITE RIGHT RADIAL; BG TOTAL HEMOGLOBIN 14.7 g/dL (12.0-18.0); BG VENT MODE ROOM AIR
[2018-11-23] MEDS ORDERED: FUROSEMIDE 40MG/4ML VIAL IVP NR (15:00)
[2018-11-23 15:21] LABS: PLATELET ESTIMATE NORMAL
[2018-11-23] MEDS: SPIRONOLACTONE 25MG TABLET PO SCH (15:44)
[2018-11-24] VITALS (7 sets, daily range): BP systolic 101–125; BP diastolic 7–80
[2018-11-24] MEDS: IPRATROPIUM/ALBUTEROL 0.5-3(2.5)MG/3ML NEB HHN SCH ×5 (00:13→15:38)
[2018-11-24 06:53] LABS: CHLORIDE 99 mEq/L (98-107)
[2018-11-24] MEDS: PREDNISONE 20MG TABLET PO SCH (08:34)
[2018-11-24] MEDS: ENOXAPARIN 40MG/0.4ML SYR SUBCUT SCH (08:34)
[2018-11-24] MEDS: FUROSEMIDE 40MG/4ML VIAL IVP SCH (08:34)
[2018-11-24] MEDS: SPIRONOLACTONE 25MG TABLET PO SCH (08:35)
[2018-11-24] MEDS: LOSARTAN POTASSIUM 25 MG TABLET PO SCH (08:36)
[2018-11-24] MEDS: AMLODIPINE 2.5MG TABLET PO SCH (08:37)
[2018-11-24] MEDS ORDERED: POTASSIUM CHLORIDE 20MEQ TABLET SR PO SCH (09:00)
== END 2018-11-24 17:20 | disposition home or self-care (01) | DRG 133 ==
LOC: ER 18:43 → 5EST 19:45 → EDBEDREQTM 20:29 → EDBEDREQSVC 20:29 → EDBEDREQ 20:29 → ENRESERV 20:39
PROVIDERS: ADMIT Internal Medicine; ATTEND Internal Medicine
PROC: 5A09357 Assistance with Respiratory Ventilation, Less than 24 Consecutive Hours, Continuous Positive Airway Pressure (ICD-10-PCS; principal; 2018-11-21)
PROC: 5A09357 Assistance with Respiratory Ventilation, Less than 24 Consecutive Hours, Continuous Positive Airway Pressure (ICD-10-PCS; 2018-11-23)
PROC: 5A09357 Assistance with Respiratory Ventilation, Less than 24 Consecutive Hours, Continuous Positive Airway Pressure (ICD-10-PCS; 2018-11-24)
DX: J96.00 Acute respiratory failure, unspecified whether with hypoxia or hypercapnia (principal); I50.23 Acute on chronic systolic (congestive) heart failure; D68.9 Coagulation defect, unspecified; E87.2 Acidosis; E44.0 Moderate protein-calorie malnutrition; I27.20 Pulmonary hypertension, unspecified; I42.0 Dilated cardiomyopathy; I45.81 Long QT syndrome; I11.0 Hypertensive heart disease with heart failure; J44.9 Chronic obstructive pulmonary disease, unspecified; F10.10 Alcohol abuse, uncomplicated; F15.10 Other stimulant abuse, uncomplicated; G40.909 Epilepsy, unspecified, not intractable, without status epilepticus; N40.0 Benign prostatic hyperplasia without lower urinary tract symptoms; F17.200 Nicotine dependence, unspecified, uncomplicated; I69.351 Hemiplegia and hemiparesis following cerebral infarction affecting right dominant side; Z79.82 Long term (current) use of aspirin; Z68.26 Body mass index [BMI] 26.0-26.9, adult
CPT/HCPCS: 36415; 36600; 71045; 74018; 80048; 80061; 80305; 82375; 82550; 82553; 82805; 83605; 83735; 83880; 84443; 84484; 93005; 94640; 94644; 94660; 96365; 96375; 97116; 97162; 99291; G0482; J1650; J1940; J2920; J2930; J3475; J7512; J7611; J7620; A4315